=== PATIENT | male | born 1965 | race Caucasian/White ===

== ENCOUNTER 2024-02-09 07:58 | Outpatient (CLI) | payer OTHER | END 2024-02-09 23:59 | disposition home or self-care (01) | LOC: RAD 07:58 → EEVIPCON 09:00 → RAD 23:59 | PROVIDERS: ATTEND Family Medicine | DX: Z12.2 Encounter for screening for malignant neoplasm of respiratory organs (principal); J43.8 Other emphysema; J98.4 Other disorders of lung | CPT/HCPCS: 71271 ==